=== PATIENT | male | born 1945 | race African-American/Black ===

== ENCOUNTER 2019-09-08 15:44 | Emergency (ER) | payer MEDICARE ==
[~2019-09-08] VITALS: Ht 177.8 cm; Wt 105.0 kg
[2019-09-08] MEDS ORDERED: DIPH,PERTUSS(ACELL),TET VAC/PF 0.5 ML SYRINGE. VAX IM ONE (16:00)
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
[2019-09-08] MEDS ORDERED: LIDOCAINE 1%/EPI 1:100,000 20 ML VIAL. INJ ONE (17:00)
[2019-09-08] MEDS ORDERED: IBUPROFEN 400 MG TABLET. PO ONE (17:30)
[2019-09-08] MEDS ORDERED: HYDROcodone/APAP 5/325MG 1 TAB TABLET PO ONE (17:30)
[2019-09-08 18:00] VITALS: BP 224/108
== END 2019-09-08 18:20 | disposition home or self-care (01) ==
LOC: ER 15:44
DX: S01.01XA Laceration without foreign body of scalp, initial encounter (principal); S50.11XA Contusion of right forearm, initial encounter; I10 Essential (primary) hypertension; F17.200 Nicotine dependence, unspecified, uncomplicated; R51 Headache; Z91.018 Allergy to other foods; Y08.89XA Assault by other specified means, initial encounter; Y93.89 Activity, other specified; Y92.89 Other specified places as the place of occurrence of the external cause; Y99.8 Other external cause status
CPT/HCPCS: 12002; 70450; 73090; 90471; 90715; 99284; J3490

== ENCOUNTER 2019-09-19 12:33 | Emergency (ER) | payer MEDICARE ==
[~2019-09-19] VITALS: Ht 180.3 cm; Wt 100.0 kg
[2019-09-19 13:29] VITALS: BP 179/91
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
== END 2019-09-19 14:38 | disposition home or self-care (01) ==
LOC: ER 12:33
DX: S01.01XD Laceration without foreign body of scalp, subsequent encounter (principal); E11.9 Type 2 diabetes mellitus without complications; I10 Essential (primary) hypertension; F17.200 Nicotine dependence, unspecified, uncomplicated; Z91.018 Allergy to other foods; X58.XXXD Exposure to other specified factors, subsequent encounter
CPT/HCPCS: 99282